=== PATIENT | female | born 1950 | race Caucasian/White ===

== ENCOUNTER 2018-09-11 16:34 | Inpatient (IN) ==
[2018-09-11] MEDS ORDERED: ACETAMINOPHEN 325 MG TABLET PO PRN (17:06)
[2018-09-11] MEDS ORDERED: PROMETHAZINE 25 MG/1 ML VIAL IM PRN (17:06)
[2018-09-11] MEDS ORDERED: ONDANSETRON 4 MG/2 ML VIAL IV PRN (17:06)
[2018-09-11] MEDS ORDERED: traMADol 50 MG TABLET PO PRN (17:06)
[2018-09-11] MEDS: SODIUM CHLORIDE 0.9% 1,000 ML IV SCH (18:26)
[2018-09-11 18:33] LABS: Basophils # 0.1 10*3/uL (0.0-0.2); Basophils % 0.7 % (0.0-0.8); Eosinophils # 0.1 10*3/uL (0.0-0.87); Eosinophils % 1.9 % (0.00-10.9); Hematocrit 40.4 VOL% (35.7-47.0); Hemoglobin 12.9 GM/DL (12.0-16.0); Immature Granulocytes % 0.4 %; Immature Granulocytes Absolute 0.03 #; Lymphocytes # 2.7 10*3/uL (1.4-4.0); Lymphocytes % 37.1 % (21.3-54.2); Mean Corpuscular HGB Conc 31.9 GM/DL (32-36); Mean Corpuscular Hemoglobin 32 PG (27-34); Mean Corpuscular Volume 98.8 FL (87-102); Mean Platelet Volume 9.6 FL (9.6-12.0); Monocytes # 0.6 10*3/uL (0.11-0.8); Monocytes % 8.3 % (1.7-12.7); Neutrophils # 3.8 10*3/uL (1.4-7.4); Neutrophils % 51.6 % (38.7-73.9); Platelet Count 361 T/CUMM (130-400); Red Blood Count 4.09 MC/CUMM (3.8-5.5); Red Cell Distribution Width 13.3 % (9.3-17.3); White Blood Count 7.4 T/CUMM (4-12)
[2018-09-11 19:00] LABS: Alanine Aminotransferase 25 U/L (13-56); Albumin 4.1 G/DL (3.4-5.0); Alkaline Phosphatase 104 U/L (45-117); Aspartate Amino Transferase 15 U/L (0-37); Bilirubin,Total < 0.39 MG/DL (0.2-1.0); Blood Urea Nitrogen 16 MG/DL (7-18); Calcium 9.6 MG/DL (8.5-10.1); Glucose 103 MG/DL (74-106); Osmolality,Calculated 277.5 MOS/KG (273-304); Potassium 3.9 MMOL/L (3.5-5.1); Sodium 139 MMOL/L (136-145); Total Protein 7.8 G/DL (6.4-8.3)
[2018-09-11] MEDS: metroNIDAZOLE INJ 250 MG in IV BAG 1 EACH IV SCH (20:56)
[2018-09-11] MEDS: ENOXAPARIN 40 MG/0.4 ML SYRINGE SUBCUT SCH (20:58)
[2018-09-11 22:04] LABS: Apearance,Urine CLEAR (Clear); Bilirubin,Urine Negative (Negative); Blood, Urine Negative (Negative); Glucose,Urine (UA) Negative (Negative); Ketones,Urine Negative (Negative); Nitrite,Urine Negative (Negative); Protein,Urine Negative; Squamous Epithelial Cell,Urine Occasional /HPF (0-10); Urine Color Straw (Yellow); Urine Specific Gravity 1.005 (1.001-1.035); Urine Urobilinogen < 2.0 EU/DL (0.2-1.0); WBC,Urine <1 /HPF (0-6)
[2018-09-12] MEDS: metroNIDAZOLE INJ 250 MG in IV BAG 1 EACH IV SCH ×4 (02:09→20:57)
[2018-09-12] MEDS: SODIUM CHLORIDE 0.9% 1,000 ML IV SCH ×3 (02:09→19:31)
[2018-09-12 05:44] LABS: Calcium 8.9 MG/DL (8.5-10.1); Osmolality,Calculated 280.3 MOS/KG (273-304); Potassium 3.7 MMOL/L (3.5-5.1)
[2018-09-12] MEDS: PANTOPRAZOLE 40 MG TABLET PO SCH (09:11)
[2018-09-12] MEDS: ENOXAPARIN 40 MG/0.4 ML SYRINGE SUBCUT SCH (20:57)
[2018-09-13] MEDS: metroNIDAZOLE INJ 250 MG in IV BAG 1 EACH IV SCH ×4 (03:36→20:20)
[2018-09-13 05:06] LABS: Calcium 8.6 MG/DL (8.5-10.1); Potassium 3.8 MMOL/L (3.5-5.1)
[2018-09-13] MEDS: SODIUM CHLORIDE 0.9% 1,000 ML IV SCH ×2 (09:36→18:46)
[2018-09-13] MEDS: PANTOPRAZOLE 40 MG TABLET PO SCH (09:36)
[2018-09-13] MEDS ORDERED: HYOSCYAMINE 0.125 MG TABLET PO PRN (14:34)
[2018-09-13] MEDS: ENOXAPARIN 40 MG/0.4 ML SYRINGE SUBCUT SCH (20:20)
[2018-09-14] MEDS: metroNIDAZOLE INJ 250 MG in IV BAG 1 EACH IV SCH ×4 (03:15→21:12)
[2018-09-14] MEDS: SODIUM CHLORIDE 0.9% 1,000 ML IV SCH ×3 (03:16→14:45)
[2018-09-14 04:22] LABS: Basophils % 0.6 % (0.0-0.8); Eosinophils # 0.1 10*3/uL (0.0-0.87); Eosinophils % 1.9 % (0.00-10.9); Hematocrit 36.5 VOL% (35.7-47.0); Hemoglobin 11.8 GM/DL (12.0-16.0); Immature Granulocytes % 0.7 %; Immature Granulocytes Absolute 0.04 #; Lymphocytes # 2.6 10*3/uL (1.4-4.0); Lymphocytes % 48.4 % (21.3-54.2); Mean Corpuscular HGB Conc 32.3 GM/DL (32-36); Mean Corpuscular Hemoglobin 32 PG (27-34); Mean Corpuscular Volume 98.6 FL (87-102); Mean Platelet Volume 9.7 FL (9.6-12.0); Monocytes # 0.4 10*3/uL (0.11-0.8); Neutrophils # 2.2 10*3/uL (1.4-7.4); Neutrophils % 40.4 % (38.7-73.9); Platelet Count 286 T/CUMM (130-400); Red Cell Distribution Width 12.9 % (9.3-17.3); White Blood Count 5.4 T/CUMM (4-12)
[2018-09-14] MEDS: PANTOPRAZOLE 40 MG TABLET PO SCH (09:08)
[2018-09-14] MEDS ORDERED: BISOPROLOL 5 MG TABLET PO SCH (16:30)
[2018-09-14] MEDS: hydroCHLOROthiazide 25 MG TABLET PO SCH (16:30)
[2018-09-14] MEDS: ENOXAPARIN 40 MG/0.4 ML SYRINGE SUBCUT SCH (21:12)
[2018-09-14] MEDS ORDERED: hydrALAZINE 20 MG/1 ML VIAL IV ONE (21:27)
[2018-09-15] MEDS: metroNIDAZOLE INJ 250 MG in IV BAG 1 EACH IV SCH ×3 (04:12→14:36)
[2018-09-15] MEDS: SODIUM CHLORIDE 0.9% 1,000 ML IV SCH (08:14)
[2018-09-15] MEDS: hydroCHLOROthiazide 25 MG TABLET PO SCH (08:37)
[2018-09-15] MEDS: PANTOPRAZOLE 40 MG TABLET PO SCH (08:37)
[2018-09-15] MEDS ORDERED: LEVOTHYROXINE 112 MCG TABLET PO SCH (11:11)
[2018-09-15] MEDS ORDERED: DOXAZOSIN 1 MG TABLET PO SCH (11:30)
[2018-09-15] MEDS ORDERED: MAGNESIUM OXIDE 400 MG TABLET PO SCH (11:30)
[2018-09-15] MEDS ORDERED: POTASSIUM CHLORIDE 10 MEQ TABLET PO SCH (11:30)
[2018-09-15 18:30] VITALS: BP 167/73
[2018-09-16] MEDS ORDERED: ASPIRIN EC 81 MG TABLET PO SCH (09:00)
== END 2018-09-15 18:20 | disposition home or self-care (01) | DRG 392 ==
LOC: N.2W 17:07 → N.5E 17:47
PROVIDERS: ADMIT Internal Medicine; ATTEND Internal Medicine